=== PATIENT | female | born 1965 | race Caucasian/White ===

== ENCOUNTER → 2020-09-16 | Outpatient (CLI) | payer OTHER, BC ==
[~2020-09-16] MED LIST: AUGMENTIN 875-1 EACH PO
== END ==
LOC: OPSV 10:18 → RAD 10:18
DX: M25.531 Pain in right wrist (principal)
CPT/HCPCS: 73090; 73110; 73130

== ENCOUNTER 2021-03-18 11:18 | Emergency (ER) | payer BC ==
[2021-03-18] MEDS ORDERED: ZOFRAN ODT 4 MG4 MG SL (12:52)
[2021-03-18] MEDS ORDERED: MEDROL DOSEPAK 24 MG PO (12:52)
[2021-03-18] MEDS ORDERED: FLONASE 0.05% N16 GM (12:52)
== END 2021-03-18 12:59 | disposition home or self-care (01) ==
LOC: ER1 11:18
DX: U07.1 COVID-19 (principal); F17.210 Nicotine dependence, cigarettes, uncomplicated; Z88.5 Allergy status to narcotic agent
CPT/HCPCS: 99284; U0002

== ENCOUNTER → 2021-04-07 | Outpatient (CLI) | payer BC ==
[~2021-04-07] MED LIST changes: +FLONASE 0.05% N16 GM; +MEDROL DOSEPAK 24 MG PO; +ZOFRAN ODT 4 MG4 MG SL
== END ==
LOC: MAMO 14:49
DX: Z12.31 Encounter for screening mammogram for malignant neoplasm of breast (principal)
CPT/HCPCS: 77063; 77067

== ENCOUNTER → 2021-04-22 | Outpatient (CLI) | payer BC | LOC: US 09:35 → MAMO 10:30 | DX: R92.8 Other abnormal and inconclusive findings on diagnostic imaging of breast (principal); N60.02 Solitary cyst of left breast | CPT/HCPCS: 76642-LT; 77065; G0279 ==

== ENCOUNTER → 2021-06-25 | Outpatient (CLI) | payer BC | LOC: EXRD 14:29 | DX: J44.9 Chronic obstructive pulmonary disease, unspecified (principal); R91.8 Other nonspecific abnormal finding of lung field | CPT/HCPCS: 71046 ==

== ENCOUNTER → 2021-07-27 | Outpatient (CLI) | payer BC | LOC: KOH-I 15:40 | DX: J18.9 Pneumonia, unspecified organism (principal) | CPT/HCPCS: 71046 ==